=== PATIENT | female | born 1965 | race Caucasian/White ===

== ENCOUNTER 2017-07-06 21:22 | Emergency (ER) | payer SELFPAY, OTHER | END 2017-07-07 01:09 | disposition left against medical advice (07) | LOC: FTE 21:22 | DX: Z53.21 Procedure and treatment not carried out due to patient leaving prior to being seen by health care provider (principal) ==

== ENCOUNTER 2018-04-18 17:26 | Emergency (ER) | payer OTHER ==
[2018-04-18] MEDS: KETOROLAC 60 MG INJ IM (19:00)
[2018-04-18] MEDS: predniSONE 20 MG TAB PO (19:00)
[2018-04-18] MEDS: ALBUTEROL 0.083% (NEB) 2.5 MG/3 ML AMP HHN (19:05)
== END 2018-04-18 19:53 | disposition home or self-care (01) ==
LOC: FTE 17:26
DX: R05 Cough (principal); I10 Essential (primary) hypertension; E11.9 Type 2 diabetes mellitus without complications
CPT/HCPCS: 71045; 94664; 96372; 99284-25

== ENCOUNTER 2019-02-28 08:01 | Day surgery (SDC) | payer OTHER ==
[2019-02-28 09:19] LABS: ADD MAN DIFF? NO
[2019-02-28 09:20] LABS: BASOPHILS % 0.4 % (0.0-2.0); EOSINOPHILS # 0.4 10^3/ul (0.0-0.5); EOSINOPHILS % 3.6 % (0.0-7.0); HEMATOCRIT 44.3 % (37.0-47.0); HEMOGLOBIN 14.5 g/dl (12.0-16.0); LYMPHOCYTES # 2.9 10^3/ul (0.8-2.9); LYMPHOCYTES % 25.7 % (15.0-51.0); MEAN CORPUSCULAR HEMOGLOBIN 28.8 pg (29.0-33.0); MEAN CORPUSCULAR HGB CONC 32.7 g/dl (32.0-37.0); MEAN CORPUSCULAR VOLUME 88.1 fl (82.0-101.0); MEAN PLATELET VOLUME 11.4 fl (7.4-10.4); MONOCYTE # 0.6 10^3/ul (0.3-0.9); MONOCYTES % 5.1 % (0.0-11.0); NEUTROPHIL # 7.4 10^3/ul (1.6-7.5); NEUTROPHILS % 64.8 % (39.0-77.0); PLATELET COUNT 266 10^3/UL (140-415); RED BLOOD COUNT 5.03 10^6/ul (4.20-5.40); RED CELL DISTRIBUTION WIDTH 13.2 % (11.5-14.5)
[2019-02-28 09:20] LABS: WHITE BLOOD COUNT 11.4 10^3/ul (4.8-10.8)
[2019-02-28] MEDS ORDERED: DIPHENHYDRAMINE 50 MG INJ IV ×2 (09:30→11:30)
[2019-02-28] MEDS ORDERED: IPRATROPIUM (NEB) 0.5 MG/2.5 ML AMP HHN ×2 (09:30→11:30)
[2019-02-28] MEDS ORDERED: FENTAnyl 50 MCG/ML VIAL IV ×6 (09:30→11:30)
[2019-02-28] MEDS ORDERED: MEPERIDINE 25 MG INJ IV ×2 (09:30→11:30)
[2019-02-28] MEDS ORDERED: ONDANSETRON 4 MG INJ IV ×2 (09:30→11:30)
[2019-02-28] MEDS ORDERED: ALBUTEROL 0.083% (NEB) 2.5 MG/3 ML AMP HHN ×2 (09:30→11:30)
[2019-02-28] MEDS ORDERED: HYDROmorphONE 1 MG/5 ML IV SYRINGE IV ×6 (09:30→11:30)
[2019-02-28] MEDS ORDERED: hydrALAzine 20 MG INJ IV ×2 (09:30→11:30)
[2019-02-28] MEDS ORDERED: OXYCODONE/ACETAMINOPHEN (5/325) TAB PO ×4 (09:30→11:30)
[2019-02-28] MEDS ORDERED: LABETALOL HCL 20MG INJ IV ×2 (09:30→11:30)
[2019-02-28] MEDS ORDERED: EPHEDrine 25 MG/5 ML SYG IV ×2 (09:30→11:30)
[2019-02-28 09:39] LABS: INR 1.04; PROTIME 13.7 Sec (11.9-14.9); PT RATIO 1.1
[2019-02-28 09:43] LABS: ALANINE AMINOTRANSFERASE 67 IU/L (13-69); ALBUMIN/GLOBULIN RATIO 1.11; ALKALINE PHOSPHATASE 100 IU/L (42-121); ANION GAP 9 (5-13); ASPARTATE AMINO TRANSFERASE 55 IU/L (15-46); BILIRUBIN,INDIRECT 0.9 mg/dl (0-1.1); BILIRUBIN,TOTAL 0.9 mg/dl (0.2-1.3); BLOOD UREA NITROGEN 13 mg/dl (7-20); CALCIUM 9.4 mg/dl (8.4-10.2); CARBON DIOXIDE 27 mmol/L (21-31); CHLORIDE 104 mmol/L (97-110); CREATININE 0.46 mg/dl (0.44-1.00); Estimated GFR > 60 mL/min (>60); GLUCOSE 238 mg/dl (70-220); POTASSIUM 3.9 mmol/L (3.5-5.1); SODIUM 140 mmol/L (135-144); TOTAL PROTEIN 7.6 g/dl (6.1-8.1)
[2019-02-28 09:47] LABS: PARTIAL THROMBOPLASTIN TIME 31.9 Sec (23.0-35.0)
[2019-02-28] MEDS ORDERED: BUPIVACAINE 0.25% (MPF) 30 ML INJ (10:52)
[2019-02-28] MEDS ORDERED: FENTAnyl 50 MCG/ML VIAL (11:22)
[2019-02-28] MEDS ORDERED: LIDOCAINE 100 MG SYRINGE (11:24)
[2019-02-28] MEDS ORDERED: PROPOFOL 20 ML (11:24)
[2019-02-28] MEDS ORDERED: INSULIN ASPART [NOVOLOG] 3 ML PEN SC (11:30)
[2019-02-28] MEDS: BUPIVACAINE 0.5% (SDV) 30 ML INJ (11:42)
[2019-02-28] MEDS: LIDOCAINE 2% (MDV) 20 ML INJ (11:42)
[2019-02-28] MEDS: HYDROCODONE/APAP (5/325) TAB PO (12:44)
== END 2019-02-28 14:13 | disposition home or self-care (01) ==
LOC: SDS 08:01
DX: R22.32 Localized swelling, mass and lump, left upper limb (principal)
CPT/HCPCS: 14020; 71045; 80053; 82962; 85025; 85610; 85730; 93005